=== PATIENT | female | born 1945 | race Two or more races ===

== ENCOUNTER 2018-11-15 07:26 | Outpatient (CLI) | payer OTHER ==
[2018-11-19] MEDS ORDERED: LEVOTHYROXINE25 MCG PO (09:06)
[2018-11-19] MEDS ORDERED: NEURONTIN800 MG PO (09:06)
[2018-11-19] MEDS ORDERED: ZOLOFT50 MG PO (09:07)
[2018-11-19] MEDS ORDERED: CLORAZEPATE DI7.5 MG PO (09:07)
[2018-11-19] MEDS ORDERED: CLONAZEPAM0.5 M1 (09:52)
== END 2018-11-15 07:30 | disposition home or self-care (01) ==
LOC: EDBD 07:26 → LAB 07:26
DX: M51.26 Other intervertebral disc displacement, lumbar region (principal); M51.36 Other intervertebral disc degeneration, lumbar region; M51.37 Other intervertebral disc degeneration, lumbosacral region; E55.9 Vitamin D deficiency, unspecified; Z01.818 Encounter for other preprocedural examination; D51.0 Vitamin B12 deficiency anemia due to intrinsic factor deficiency; M47.897 Other spondylosis, lumbosacral region; R53.81 Other malaise

== ENCOUNTER 2018-11-21 08:45 | Day surgery (SDC) | payer OTHER ==
[~2018-11-21 08:45] MED LIST: CLONAZEPAM0.5 M1; CLORAZEPATE DI7.5 MG PO; LEVOTHYROXINE25 MCG PO; NEURONTIN800 MG PO; ZOLOFT50 MG PO
== END 2018-11-21 13:45 | disposition home or self-care (01) ==
LOC: CIR.AMB 08:45 → EDBD 12:30 → CIR.AMB 13:45
DX: M51.16 Intervertebral disc disorders with radiculopathy, lumbar region (principal)